=== PATIENT | male | born 1960 | race Caucasian/White ===

== ENCOUNTER 2025-02-19 15:10 | Outpatient (CLI) | payer BC ==
--- NOTE | 2025-02-19 15:43 | RADIOLOGY REPORT ---
X-ray right shoulder Technique: AP internal and external rotation views and transscapular view REASON FOR EXAM: RIGHT ARM PAIN INDICATION: RIGHT ARM PAIN FINDINGS: No fractures or dislocations. No erosions or periosteal reaction. Articular surfaces are smooth. IMPRESSION: 1. No bony pathology
== END 2025-02-19 23:59 | disposition home or self-care (01) ==
LOC: RAD 15:10
PROVIDERS: ATTEND Student in an Organized Health Care Education/Training Program
DX: M79.601 Pain in right arm (principal)
CPT/HCPCS: 73030